=== PATIENT | male | born 1995 | race Caucasian/White ===

== ENCOUNTER 2017-11-15 18:31 | Emergency (ER) ==
[2017-11-15 18:41] VITALS: BP 150/84; TEMP 99.2; BMI 25.0
[2017-11-15] MEDS ORDERED: LIDOCAINE HCL 1% SDV ONE (19:28)
[2017-11-15] MEDS ORDERED: LIDOCAINE HCL 1% SDV SUBCUT STA (19:30)
[2017-11-15] MEDS ORDERED: BOOSTRIX IM ONE (19:30)
--- NOTE | 2017-11-15 20:02 | ED.PDOC ---
General ED Provider: Dr. GISSEL HANNON Chief Complaint: Toe Pain/Injury Stated Complaint: Slipped and [place] sustaining a laceration to right pinky toe with some bleeding. Td is not up to date. Time Seen by Physician: 19:30 Mode of Arrival: Walk-In Information Source: Patient Exam Limitations: No limitations Nursing and Triage Documentation Reviewed and Agree: Yes Does patient meet sepsis criteria?: No System Inflammatory Response Syndrome: Not Applicable Sepsis Protocol: For patient's 13 years and over: Temp is 96.8 and below OR 101 and greater Pulse >90 BPM Resp >20/minute Acutely Altered Mental Status Are patient's symptoms suggestive of a new infection, such as: -Pneumonia -Skin, Soft Tissue -Endocarditis -UTI -Bone, Joint Infection -Implantable Device -Acute Abdominal Infection -Wound Infection -Meningitis -Blood Stream Catheter Infection -Unknown Skin Complaint Exam - Laceration/Lower Ext. Complaint/Exam Location of Injury: Right, Toe #5 Mechanism of Injury: Laceration Onset/Duration: Just prior to arrival Symptoms Are: Still present Initial Severity: Severe Current Severity: Moderate Aggravating: Movement Alleviating: Compression Associated Signs and Symptoms: Denies: Fever, Chills, Erythema, Numbness, Tingling Lower Extremity Picture: 1 - 2.5 cm laceration on the dorsal aspect of the lesser toe. Differential Diagnoses: Open Fracture, Laceration Review of Systems - Review Of Systems Constitutional: Reports: No symptoms Eyes: Reports: No symptoms Ears, Nose, Mouth, Throat: Reports: No symptoms Respiratory: Reports: No symptoms Cardiac: Reports: No symptoms GI: Reports: No symptoms : Reports: No symptoms Musculoskeletal: Reports: Joint pain Skin: Reports: Bruising Neurological: Reports: No symptoms Endocrine: Reports: No symptoms Hematologic/Lymphatic: Reports: No symptoms All Other Systems: Reviewed and Negative Past Medical History - Past Medical History Previously Healthy: Yes Endocrine: Reports: None Cardiovascular: Reports: None Respiratory: Reports: Asthma Hematological: Reports: None Gastrointestinal: Reports: None Genitourinary: Reports: None Neuro/Psych: Reports: None Musculoskeletal: Reports: None Cancer: Reports: None - Surgical History General Surgical History: Reports: None - Family History Family History: Reports: None - Social History Smoking Status: Never smoker Hx Substance Use: No Alcohol Screening: Occasionally - Immunizations Tetanus Shot up to Date: No Physical Exam - Physical Exam Appearance: Ill-appearing Pain Distress: Moderate Respiratory: Airway patent, Breath sounds clear, Breath sounds equal, Respirations nonlabored Cardiovascular: RRR, Pulses normal, No rub, No murmur GI/: Soft, Nontender, No masses, Bowel sounds normal, No Organomegaly Musculoskeletal: Normal strength, ROM intact, No edema Skin: Warm, Dry Neurological: Sensation intact, Motor intact, Cranial nerves intact, Alert, Oriented Psychiatric: Anxious Interpretation - Radiology Interpretation Radiology Interpretation By: ED Physician Radiology Results: Negative Exam Interpreted: Other (right Lesser toe) Procedures - Laceration/Wound Repair right 5th toe dorsal aspcet Wound Description: Linear Wound Length (cm): 2.5 Wound Width: 0.1 Wound Depth: 0.5 Wound Explored: Clean Wound Irrigated: No Wound Prep: Hibiclens Anesthesia: Lidocaine Wound Repaired With: Sutures Suture Size and Type: 5.0 Number of Sutures: 12 (9 running and 3 simple ) Layer Closure?: No Sterile Dressing Applied?: Yes Splint Applied?: No Progress: Tolerated procedure well Re-Evaluation - Re-Evaluation Time of Re-Evaluation: 20:24 Status: Improved Vital Signs Stable: Yes (P 92) Pain Level: improved Appearance: NAD Critical Care Note - Critical Care Note Total Time (mins): 0 Course - Course Orders, Labs, Meds: Orders Category Date Time Status Diphth,Pertuss(Acell),Tet Vac [Boostrix] MEDS 11/15/17 19:30 Discontinued 0.5 ml IM .ONCE ONE Lidocaine HCl/Pf [Lidocaine HCl 1% Sdv] MEDS 11/15/17 19:28 Discontinued 5 ml .ROUTE .STK-MED ONE Lidocaine HCl/Pf [Lidocaine HCl 1% Sdv] MEDS 11/15/17 19:30 Discontinued 5 ml SUBCUT ONCE STA TOE(S), RIGHT MIN 2V Stat RADS 11/15/17 19:59 Taken Medications Discontinued Medications Generic Name Dose Route Start Last Admin Trade Name Freq PRN Reason Stop Dose Admin Diphtheria/Pertussis/Tetanus Vacc 0.5 ml 11/15/17 19:30 11/15/17 20:06 Boostrix IM 11/15/17 19:31 0.5 ml .ONCE ONE Administration Lidocaine HCl 5 ml 11/15/17 19:30 11/15/17 19:39 Lidocaine Hcl 1% Sdv SUBCUT 11/15/17 19:31 Not Given ONCE STA Vital Signs: Temp Pulse Resp BP Pulse Ox 11/15/17 18:32 99.2 F 111 H 16 150/84 H 97 Departure - Departure Time of Disposition: 20:15 Disposition: HOME SELF-CARE Discharge Problem: Injury of toe Laceration of toe of right foot without foreign body present Qualifiers: Encounter type: initial encounter Toe: lesser toe Damage to nail status: without damage Qualified Code(s): S91.114A - Laceration without foreign body of right lesser toe(s) without damage to nail, initial encounter Instructions: Laceration (ED) Condition: Fair Pt referred to PMD for follow-up: Yes IPMP verified?: No Additional Instructions: Have sutures removed in 7-10 days Take antibiotics until gone Follow up with PCP Return or go to the ER if worse Prescriptions: Cephalexin [Keflex] 500 mg PO Q8HR #30 capsule Allergies/Adverse Reactions: Allergies No Known Allergies Allergy (Unverified 11/15/17 18:35) Home Medications: Ambulatory Orders Cephalexin [Keflex] 500 mg PO Q8HR #30 capsule 11/15/17 Montelukast Sodium [Singulair] 10 mg PO DAILY 11/15/17 Disposition Discussed With: Patient
--- NOTE | 2017-11-16 07:24 | DI ---
EXAM: Three views of the left fifth digit HISTORY: Trauma with laceration. COMPARISON: None FINDINGS: There is soft tissue swelling of the left fifth digit. There is no cortical irregularity o r displaced fracture. There is no lytic or blastic lesion. The adjacent osseous structures are unre markable. IMPRESSION: Soft tissue swelling of the fifth digit with no acute osseous abnormality.
== END 2017-11-15 20:32 | disposition home or self-care (01) ==
LOC: ED 18:31
DX: S91.114A Laceration without foreign body of right lesser toe(s) without damage to nail, initial encounter (principal); W45.8XXA Other foreign body or object entering through skin, initial encounter; W18.2XXA Fall in (into) shower or empty bathtub, initial encounter
CPT/HCPCS: 90471; 90715; 99283